=== PATIENT | male | born 1960 | race African-American/Black ===

== ENCOUNTER → 2016-09-26 | Outpatient (CLI) | payer OTHER ==
[2016-03-05 14:55] VITALS: BP 128/63
[~2016-09-26] MED LIST: CARI350T14 PO; CHOL2000 PO; DIPH25CA58 PO; DOCU-27 PO; MULT-460 PO; OXYC1TAB9 PO
--- NOTE | 2016-09-27 01:36 | PAIN ---
DATE OF SERVICE: 09/26/2016 INITIAL CONSULTATION FOR PAIN CLINIC HISTORY OF PRESENT ILLNESS: The patient is a 56-year-old male who presents with history of pain in the low back and the right lower extremity since about December of last year for approximately 9 months. He did have surgery in 02/2016 for decompressive laminectomy, laminotomy and diskectomy. The patient reports the pain never really went away in his right leg and his low back, it has been there at all time. He has had to quit work. 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 The patient reports the pain is constant, throbbing, shooting in the low back, across the low back, mid back into the right leg in the lateral and anterior aspect of the thigh to the knee on the right side, similar to that was prior to surgery. The patient reports it awakens him from sleep at least 6-8 times at night. It does not affect his bowel or bladder control, but does affect his ability to walk, using a cane in his right hand most times. He has tried oxycodone, Soma and other [id number] medications, which helped to moderate extent. Oxycodone is the best. The patient has had physical therapy, counseling, exercises, he is currently doing at home with physical therapy training in the past as well. The patient reports no symptoms on the left side. No complete loss of motor function, but significant weakness and fatigability with the right leg with any ambulation even a few steps. PAST MEDICAL HISTORY: Significant for hypercholesterolemia, headaches, urinary frequency, and osteoarthritis. PREVIOUS SURGERY: Include bilateral shoulder surgeries, twice on the right, once the left with hardware and reconstruction reported from previous injuries also lumbar surgery in 02/2016 as noted. CURRENT MEDICATIONS: Include oxycodone, multivitamins, vitamin D3, Colace, and Benadryl. ALLERGIES: The patient has no known drug allergies. FAMILY HISTORY: Hypertension, hypercholesterolemia and diabetes. SOCIAL HISTORY: The patient drinks alcohol only very rarely, does not smoke. He is , lives with his spouse. No children living at home. He is currently off work secondary to disability. REVIEW OF SYSTEMS: The patient's review of systems is positive for those items mentioned in history of present illness. All systems reviewed and otherwise negative. It is complete, full and well documented on the patient's chart. PHYSICAL EXAMINATION: VITAL SIGNS: Today, blood pressure is 146/92, pulse 85, respirations 16, temperature 98.0 degrees Fahrenheit. Height is 5 feet 5 inches. Weigh is 176 pounds. GENERAL: The patient is awake, alert, oriented, appropriate, very pleasant demeanor. HEENT: Head shows normocephalic, atraumatic. Extraocular movements are intact, symmetrical. Oral cavity, mucous membranes are moist and pink. Dentition is intact. NECK: Shows anterior throat supple without palpable lymphadenopathy noted. Swallow reflex is symmetrical. CHEST: Shows normal with inspection. Breath sounds clear to auscultation bilaterally. HEART: Shows S1 and S2 clear. ABDOMEN: Soft, nontender, and nondistended. No palpable organomegaly is noted. No rebound or guarding demonstrated. BACK: The patient's back shows spine grossly midline. He has normal appearing thoracic kyphosis and some mild flattening of lumbar lordotic curvature. Well healed surgical scars noted in the lumbar distribution. Lumbar paraspinous muscle shows symmetrical on inspection, with palpation shows some moderate tenderness with palpation bilaterally, but diffusely throughout the upper, middle and lower distribution, very firm, very tight though with normal muscle girth and symmetry. No trigger points. No radiation of pain demonstrated. The patient shows no tenderness over the spinous processes. No tenderness over the sacrum or sacroiliac regions with palpation. The patient shows good rotation and motion both laterally about 10 degrees right and left as well as extension 10 degrees, forward flexion at about 40 degrees without significant pain reported with some minor limitation with forward flexion secondary to inability to flex, but not painful. The patient's lower extremities showed deep tendon reflexes at 1+ in the patellar and tendo calcaneus tendons. Motor exam is approximately 4 on a scale of 5 with right dorsiflexion, extension, quadriceps and hamstring flexion; 5/5 on the left. Peripheral pulses are 1+ posterior tibial and dorsalis pedis pulses. No peripheral edema is noted. No clubbing, no cyanosis. EXTREMITIES: Lower extremities are warm and dry to touch, equal in color and appearance. Straight leg raise is positive on the right at about 35 degrees, is negative on the left. Gaenslen's and Peterson's maneuvers are grossly negative bilaterally. The patient is able to stand, stand on his toes, but loses balance very quickly putting all his weight on his right leg. Again, he is using a cane in his right hand and he ambulates with a significant limp favoring the right lower extremity. IMPRESSION: 1. This is a 56-year-old male with a history of low back pain for many years and status post surgery in 02/2016 with laminectomy decompression without significant improvement in his radicular pain in the right lower extremity. 2. MRI scan of lumbar spine showing prior surgery at L4-L5 extraforaminal intervertebral disk protrusion extrusion with impingement of the right L4 nerve root, moderate degenerative disk disease at L3-L4 and L2-L3. Again, this was prior to surgery. PLAN: Options were discussed with the patient including conservative medical management, physical therapy and interventional techniques. He would like to pursue most conservative course. We will try Medrol Dosepak. The patient was given instruction as well as side effects to be aware with medication. Also, we will have the patient start water physical therapy. If not significantly improved after these modalities, we did discuss possible interventional techniques such as caudal epidural steroid injection, but we will see how he does with the physical therapy and medication first. The patient will follow up in approximately 2 weeks as scheduled. RONAL SORIANO MD DR: MALCOLM/michaela JOB#: [id number] / [id number]
== END | disposition home or self-care (01) ==
LOC: PNCL 10:02
PROVIDERS: ATTEND Anesthesiology
DX: M51.26 Other intervertebral disc displacement, lumbar region (principal); M25.551 Pain in right hip; M54.40 Lumbago with sciatica, unspecified side
CPT/HCPCS: 99214

== ENCOUNTER → 2016-10-10 | Outpatient (CLI) | payer OTHER ==
[2016-03-05 14:55] VITALS: BP 128/63
[~2016-10-10] MED LIST changes: +IOHEXOL 180 MG/ML 10 ML VIAL. ONE; +methylPREDNISolone ACETATE 40 MG/ML VIAL. ONE; +methylPREDNISolone ACETATE 80 MG/ML VIAL. ONE
--- NOTE | 2016-10-10 19:52 | PAIN ---
DATE OF SERVICE: 10/10/2016 PROGRESS NOTE FOR PAIN CLINIC DIAGNOSES: Lumbar radiculopathy with lumbar degenerative disk disease and post-lumbar laminectomy syndrome. HISTORY OF PRESENT ILLNESS: The patient is a 56-year-old male, who returns for followup status post initial evaluation and Medrol Dosepak. I also ordered for physical therapy to start with pool therapy, which will start next week. The patient reports no significant difference with the Medrol Serjio, still significant pain in the low back and right lower extremity as it had radiating to the posterior gluteus, lateral thigh, anterior thigh, medial thigh and in to the posterior lower leg at times as well as stabbing, dull, tight aching, constant pain rated as 6 on a scale of 10. The patient reports still awaking him from sleep 4-5 times at night, he has to get reposition and taking pain medicines to ____ decrease the pain. PHYSICAL EXAMINATION: VITAL SIGNS: The patient's blood pressure 136/84, pulse 93, respirations are 20, temperature 98.2 degrees Fahrenheit, height is 5 feet 5 inches, weighs 177 pounds. GENERAL: The patient is awake, alert, oriented, appropriate, very pleasant demeanor. HEENT: Head shows normocephalic, atraumatic. Extraocular movements are intact and symmetrical. Oral cavity: Mucous membranes moist and pink. Dentition is intact. NECK: Shows anterior throat supple without palpable lymphadenopathy noted. Swallow reflex is symmetrical. CHEST: Shows normal on inspection. Breath sounds are clear to auscultation bilaterally. HEART: Shows S1 and S2 clear. ABDOMEN: Soft, nontender, nondistended. No palpable organomegaly noted. No rebound or guarding demonstrated. BACK: Shows spine grossly midline. Well healed surgical scars noted in the lumbar distribution and lumbar minor flattening of the lumbar lordotic curvature with palpation shows only diffuse tenderness in the middle and lower distribution of paraspinous muscles bilaterally in the lumbar distribution, but without radiation. No tenderness over the sacrum or sacroiliac regions. EXTREMITIES: Lower extremities showed deep tendon reflexes 1+ in the patellar and tendo calcaneus tendons. Motor exam is approximately 4 on a scale of 5 on the right, dorsiflexion and extension, 5/5 on the left. Options were discussed with the patient. The patient's old chart was reviewed as his current medication regimen updated. Current review of systems updated today as well. We will proceed with a caudal approach epidural steroid injection today with fluoroscopic guidance. Risks were again discussed including but not limited to bleeding, infection, possibility of epidural hematoma, subsequent neurologic compromise, dural puncture, headaches, spinal cord and/or nerve damage, side effects of steroid medication and poor results regarding pain control. The patient understands and wishes to proceed. The patient will return to clinic in approximately 2 weeks for followup, was counseled on return appointment, activity level and side effects to be aware of. DIAGNOSES: Lumbar radiculopathy with lumbar degenerative disk disease and post-lumbar laminectomy syndrome. PROCEDURE: Lumbar epidural steroid injection and caudal approach using C-arm fluoroscopic guidance under sterile prep and drape with local anesthetic. MEDICATIONS INJECTED: Depo-Medrol 120 mg plus 10 mL of preservative-free normal saline and 2 mL of Isovue for contrast. CONDITION AT DISCHARGE: Stable. The patient tolerated the procedure well, had no complications. RONAL SORIANO MD DR: MALCOLM/michaela JOB#: [id number] / [id number]
== END | disposition home or self-care (01) ==
LOC: PNCL 09:15
PROVIDERS: ATTEND Anesthesiology
DX: M51.16 Intervertebral disc disorders with radiculopathy, lumbar region (principal); M96.1 Postlaminectomy syndrome, not elsewhere classified; Z72.89 Other problems related to lifestyle
CPT/HCPCS: 62323; J1030; J1040; 62321

== ENCOUNTER → 2016-10-23 | Outpatient (CLI) | payer OTHER ==
[2016-03-05 14:55] VITALS: BP 128/63
[~2016-10-23] MED LIST changes: -IOHEXOL 180 MG/ML 10 ML VIAL. ONE; -methylPREDNISolone ACETATE 40 MG/ML VIAL. ONE; -methylPREDNISolone ACETATE 80 MG/ML VIAL. ONE
--- NOTE | 2016-10-24 00:03 | PAIN ---
DATE OF SERVICE: 10/23/2016 PROGRESS NOTE FOR PAIN CLINIC DIAGNOSES: Lumbar radiculopathy with lumbar degenerative disk disease and post-lumbar laminectomy syndrome. HISTORY OF PRESENT ILLNESS: The patient is a 56-year-old male, who returns for followup status post caudal epidural steroid injection x 1. The patient reports no significant improvement in the pain in his low back and right leg. We tried Medrol Dosepak prior to that with no significant improvement as well. The patient is somewhat frustrated ____ pain with these continued to do water aerobics therapy and reports he feels that this may help slightly. The patient reports the pain 8 on a scale of 10 at its worst, currently at 7 on a scale of 10, describes as an aching, dull, tight, cramping and constant, mostly in the right leg and low back. The patient has been taking some oxycodone from his primary physician, which does help by about 50%. The patient reports no new motor or sensory deficits, no new bowel or bladder incontinence or other complaints. It does awaken him from sleep At night and has been repositioned, get up and stand change positions and he is able to get back to sleep after this. PHYSICAL EXAMINATION: VITAL SIGNS: Today, the patient's blood pressure is 138/90, pulse 77, respirations 18, temperature 98.3 degrees Fahrenheit, height is 5 feet 5 inches, weight 174 pounds. GENERAL: The patient is awake, alert, oriented, appropriate, very pleasant demeanor. HEENT: Shows normocephalic, atraumatic. Extraocular movements are intact and symmetrical. Oral cavity shows mucous membranes are moist and pink. Dentition is intact. NECK: Shows anterior throat supple without palpable lymphadenopathy noted. Swallow reflex is symmetrical. CHEST: Shows normal on inspection. Breath sounds are clear to auscultation bilaterally. HEART: Shows S1 and S2 clear. ABDOMEN: Soft, nontender, nondistended. No palpable organomegaly is noted. No rebound or guarding demonstrated. BACK: Shows spine grossly midline. Lumbar flattening of the lordotic curvature is again noted. There is some mild tenderness with palpation in the lumbar paraspinous musculature bilaterally, but only diffusely in the lower lumbar distribution is symmetrical without evidence of atrophy or hypertrophy. EXTREMITIES: Lower extremities show deep tendon reflexes at 1+ in the patellar and tendo calcaneus tendons. Motor exam is approximately 4 on a scale of 5 on the right and 5/5 on the left with dorsiflexion, extension, quadriceps and hamstring flexion. Options were discussed with the patient. The patient's old chart was reviewed as is his current medication regimen updated. Current review of systems updated today as well. We will hold on any further injections for his choice, he would like to continue with pool therapy and recommend this as well to see how he is proceed. Once this is completed, he will follow up on as needed basis at this time. We discussed the possibility of repeat injection in the future. Again, we will maintain pool therapy at this time and have him return on as needed basis. RONAL SORIANO MD DR: MALCOLM/nts JOB#: [id number] / [id number]
== END | disposition home or self-care (01) ==
LOC: PNCL 08:57
PROVIDERS: ATTEND Anesthesiology
DX: M51.16 Intervertebral disc disorders with radiculopathy, lumbar region (principal); M96.1 Postlaminectomy syndrome, not elsewhere classified
CPT/HCPCS: 99212

== ENCOUNTER 2017-02-06 13:56 | Emergency (ER) | payer SELFPAY ==
[~2017-02-06 13:56] MED LIST changes: +DOCU-109 PO; -DOCU-27 PO
[2017-02-06 14:25] VITALS: BP 166/93
--- NOTE | 2017-02-06 14:53 | PHYS DOC ---
Adult General Chief Complaint Chief Complaint: BACK PAIN - NO INJURY HPI HPI Patient is a 56 year old female with history of sciatica, chronic back pain, high cholesterol, who presents today with moderate left low back pain radiating to the right lower extremity chronic in nature worse on movement. Patient denies any trauma. Denies any loss of bowel bladder function. He states he takes oxycodone 10 mg and ran out of them one week ago. He states he gets his medicine from his PCP Dr. Batres but due to insurance issues he has not been able to get into the doctor's. Review of Systems Review of Systems Constitutional: Denies fever or chills [] GI: Denies abdominal pain, nausea, vomiting, bloody stools or diarrhea [] : Denies dysuria or hematuria [] Musculoskeletal: Left low back pain radiating to the right lower extremity Integument: Denies rash or skin lesions [] Neurologic: Denies headache, focal weakness or sensory changes [] Current Medications Current Medications Current Medications Medications (Trade) Dose Ordered Sig/Wilmer Start Time Stop Time Status Last Admin Dose Admin Oxycodone HCl (Roxicodone) 10 mg 1X ONCE 02/06/17 15:00 02/06/17 15:01 DC 02/06/17 14:55 10 MG Allergies Allergies Allergies Coded Allergies Type Severity Reaction Last Updated Verified Zgjlywh-Gco-Hhb Reductase Inhibitor Allergy Intermediate 03/05/16 Yes acetaminophen Allergy Intermediate Itching 03/05/16 Yes codeine Allergy Intermediate Itching 03/05/16 Yes Milk Containing Products Adverse Reaction Intermediate Nausea and Vomiting Yes tomato Adverse Reaction Intermediate Nausea and Vomiting 03/05/16 Yes Physical Exam Physical Exam Constitutional: Well developed, well nourished, no acute distress, non-toxic appearance. [] Abdomen: Bowel sounds normal, soft, no tenderness, no masses, no pulsatile masses. [] Skin: Warm, dry, no erythema, no rash. [] Back: Old healed surgical incision noted on the lower lumbar spine, mild paraspinal muscle tenderness to the left lumbar spine, no midline lumbar spine tenderness, no CVA tenderness. [] Extremities: No tenderness, no cyanosis, no clubbing, ROM intact, no edema. [] Neurologic: Alert and oriented X 3, normal motor function, normal sensory function, no focal deficits noted. [] Psychologic: Affect normal, judgement normal, mood normal. [] Current Patient Data Vital Signs Vital Signs Date Time Temp Pulse Resp B/P (MAP) Pulse Ox O2 Delivery O2 Flow Rate FiO2 02/06/17 14:55 20 98 Room Air 02/06/17 14:25 98.3 68 98.3 EKG EKG [] Radiology/Procedures Radiology/Procedures [] Course & Med Decision Making Course & Med Decision Making Pertinent Labs and Imaging studies reviewed. (See chart for details) Patient is in the ED with complaints of exacerbation of chronic low back pain, no known injury, he states he out of his oxycodone and states he is not able to see his PCP due to insurance issues. He was given pain relief in the ED and discharged with Robaxin. Follow-up with his own PCP and the pain clinic in the course of next week. Dragon Disclaimer Dragon Disclaimer This electronic medical record was generated, in whole or in part, using a voice recognition dictation system. Departure Departure Impression: Primary Impression: Low back pain Additional Impression: Sciatica of right side Disposition: 01 HOME, SELF-CARE Condition: STABLE Referrals: KAUR BATRES MD (PCP) follow up next week Patient Instructions: Back Pain, Adult, Sciatica Additional Instructions: You were seen for low back pain with sciatica. Follow-up with the pain clinic as well as your primary care doctor next week. Scripts Methocarbamol (ROBAXIN) 500 Mg Tablet 1 TAB PO TID, #30 TAB Prov: ALIREZA VERA APRN 02/06/17 Problem Qualifiers Primary Impression: Low back pain Chronicity: chronic Back pain laterality: left Sciatica presence: with sciatica Sciatica laterality: sciatica of right side Qualified Codes: M54.41 - Lumbago with sciatica, right side; G89.29 - Other chronic pain ALIREZA VERA APRN Feb 06, 2017 14:53
[2017-02-06] MEDS ORDERED: METH-37 PO (14:59)
[2017-02-06] MEDS ORDERED: oxyCODONE IR 5 MG TABLET PO ONE (15:00)
== END 2017-02-06 15:15 | disposition home or self-care (01) ==
LOC: ER 13:56
DX: G89.29 Other chronic pain (principal); M54.41 Lumbago with sciatica, right side; E78.00 Pure hypercholesterolemia, unspecified; Z88.5 Allergy status to narcotic agent; Z88.8 Allergy status to other drugs, medicaments and biological substances; Z91.011 Allergy to milk products; Z91.018 Allergy to other foods
CPT/HCPCS: 99283

== ENCOUNTER → 2018-01-01 | Outpatient (CLI) | payer OTHER | END | disposition home or self-care (01) | LOC: MRI 09:39 | DX: M51.36 Other intervertebral disc degeneration, lumbar region (principal); M79.604 Pain in right leg; M48.061 Spinal stenosis, lumbar region without neurogenic claudication | CPT/HCPCS: 72148 ==

== ENCOUNTER 2018-01-28 10:55 | Emergency (ER) | payer OTHER ==
[~2018-01-28] VITALS: Ht 170.2 cm; Wt 81.6 kg
[~2018-01-28 10:55] MED LIST changes: +METH-37 PO; +OXYC-411 PO; -OXYC1TAB9 PO; +PRAV20TA2 PO; +PROP10TA PO
[2018-01-28 11:23] VITALS: BP 130/72
--- NOTE | 2018-01-28 12:21 | RAD ---
EXAM: Bilateral shoulders, 3 views. HISTORY: Pain. Fall. COMPARISON: None. FINDINGS: 3 views of both shoulders are obtained. There is chronic deformity of the articular surface of the right humeral head with subchondral sclerosis and marginal spurring. There is lucency within the right femoral neck possibly due to prior instrumentation. There are fixation screws within both glenoids. There is to moderate bilateral lateral humeral subchondral cyst formation and marginal spurring. There is superior migration of the right humeral head suggesting a rotator cuff tear. There is degenerative change involving the visualized cervical spine. There is mild thoracic scoliosis. IMPRESSION: 1. No acute osseous finding. 2. Superior migration of the right humeral head with decreased subacromial space suggesting a rotator cuff tear. 3. Bilateral glenoids fixation screws and moderate glenohumeral osteoarthritis. There is associated remodeling involving the articular aspect of the right humeral head. 4. Small lucent region within the right humeral neck possibly due to prior instrumentation. Electronically signed by: Kristin Baer MD (01/28/2018 12:18 PM) [id number]
[2018-01-28] MEDS: KETOROLAC 30 MG/ML VIAL. IM ONE (13:09)
[2018-01-28] MEDS: ORPHENADRINE CITRATE 60 MG/2 ML VIAL. IM ONE (13:09)
[2018-01-28] MEDS ORDERED: ORPH100T PO (13:36)
[2018-01-28] MEDS ORDERED: NAPR-514 PO (13:36)
--- NOTE | 2018-01-28 13:36 | PHYS DOC ---
Past Medical History Past Medical History: High Cholesterol, Hypertension, Other Additional Past Medical Histor: seasonal allergies, sciatica Past Surgical History: Other Additional Past Surgical Histo: L shoulder x1, R shoulder x2, back Alcohol Use: None Drug Use: None Adult General Chief Complaint Chief Complaint: SHOUDLER HPI HPI Patient is a 57 year old female who presents to the ER today with complaints of bilateral shoulder pain and upper back pain after a fall 2 months ago. He denies any numbness, tingling, or weakness of his extremities. He states that his pain as 8 out of 10 on the patient pain scale. He states he is out of his pain medication at home. Patient states he had a MRI of his back done here on January 01, 2018, he reports a history of chronic back pain and sciatica. His primary care doctor is Dr. Oropeza. Patient states that he typically takes oxycodone for relief of his pain however he is currently out of his oxycodone. Patient states that his pain increases with movement and that his upper shoulders feel tight to touch. Review of Systems Review of Systems Constitutional: Denies fever or chills [] Musculoskeletal: Reports upper back pain and bilateral shoulder pain after a fall 2 months ago Integument: Denies rash or skin lesions [] Neurologic: Denies headache, focal weakness or sensory changes [] Current Medications Current Medications Current Medications Medications (Trade) Dose Ordered Sig/Wilmer Start Time Stop Time Status Last Admin Dose Admin Ketorolac Tromethamine (Toradol 30mg Vial) 30 mg 1X ONCE 01/28/18 12:00 01/28/18 12:01 DC 01/28/18 13:09 30 MG Orphenadrine Citrate (Norflex) 60 mg 1X ONCE 01/28/18 12:00 01/28/18 12:01 DC 01/28/18 13:09 60 MG Allergies Allergies Allergies Coded Allergies Type Severity Reaction Last Updated Verified Rymfiho-Tfa-Acu Reductase Inhibitor Allergy Intermediate 03/05/16 Yes acetaminophen Allergy Intermediate Itching 03/05/16 Yes codeine Allergy Intermediate Itching 03/05/16 Yes Milk Containing Products Adverse Reaction Intermediate Nausea and Vomiting Yes tomato Adverse Reaction Intermediate Nausea and Vomiting 03/05/16 Yes Physical Exam Physical Exam Constitutional: Well developed, well nourished, no acute distress, non-toxic appearance. [] HENT: Normocephalic, atraumatic, bilateral external ears normal, nose normal. [] Eyes: PERRLA, conjunctiva normal, no discharge. [] Neck: Normal range of motion, chin to chest normal, no bony tenderness, supple, no stridor. [] Skin: Warm, dry, no erythema, no rash. [] Back: No bony tenderness, pt reports tightness with palpation of trapezius muscles bilaterally Extremities: No tenderness, no cyanosis, no clubbing, ROM intact, no edema., equal tube backer bilat[] Neurologic: Alert and oriented X 3, normal motor function, normal sensory function, no focal deficits noted. [] Psychologic: Affect normal, judgement normal, mood normal. Current Patient Data Vital Signs Vital Signs Date Time Temp Pulse Resp B/P (MAP) Pulse Ox O2 Delivery O2 Flow Rate FiO2 01/28/18 11:23 98.8 92 18 130/72 (91) 97 Room Air 98.8 EKG EKG [] Radiology/Procedures Radiology/Procedures IMAGING REPORT Signed PATIENT: BERTIN RAMIREZ ACCOUNT: [id number] : 1960 LOCATION: ER AGE: 57 SEX: M EXAM STATUS: REG ER ORD. PHYSICIAN: EKATERINA ZUNIGA APRN REASON: persistent pain after fall 2 months ago PROCEDURE: SHOULDER BILAT 2+V EXAM: Bilateral shoulders, 3 views. HISTORY: Pain. Fall. COMPARISON: None. FINDINGS: 3 views of both shoulders are obtained. There is chronic deformity of the articular surface of the right humeral head with subchondral sclerosis and marginal spurring. There is lucency within the right femoral neck possibly due to prior instrumentation. There are fixation screws within both glenoids. There is to moderate bilateral lateral humeral subchondral cyst formation and marginal spurring. There is superior migration of the right humeral head suggesting a rotator cuff tear. There is degenerative change involving the visualized cervical spine. There is mild thoracic scoliosis. IMPRESSION: 1. No acute osseous finding. 2. Superior migration of the right humeral head with decreased subacromial space suggesting a rotator cuff tear. 3. Bilateral glenoids fixation screws and moderate glenohumeral osteoarthritis. There is associated remodeling involving the articular aspect of the right humeral head. 4. Small lucent region within the right humeral neck possibly due to prior instrumentation. Electronically signed by: Kristin Mayfield MD (01/28/2018 12:18 PM) [facility] DICTATED and SIGNED BY: KRISTIN MAYFIELD MD DATE: 01/28/18 1215 [] Course & Med Decision Making Course & Med Decision Making Pertinent Labs and Imaging studies reviewed. (See chart for details) Patient is a 57-year-old male who presents to emergency room today with complaints of bilateral shoulder pain and upper back pain after a fall 2 months ago. VSS, xray of L shoulder shows no acute findings. R shoulder film suggestive of rotator cuff tear. Patient was given 30 mg of IM Toradol and 60 mg of IM orphenadrine, reported relief with these medications. Discussed these results with the patient patient agreed to follow-up with his orthopedic doctor for further evaluation of right shoulder pain. Patient will be prescribed naproxen and orphenadrine for home use. Patient verbalized an understanding of home care , medications, follow-up, and return to ED instructions and was in agreement with the plan of care. [] Dragon Disclaimer Dragon Disclaimer This electronic medical record was generated, in whole or in part, using a voice recognition dictation system. Departure Departure Impression: Primary Impression: Upper back strain Additional Impressions: Right shoulder pain Left shoulder pain Disposition: 01 HOME, SELF-CARE Condition: STABLE Referrals: KAUR BATRES MD (PCP) Patient Instructions: Back Pain, Adult, Drra-un-Dqiw, Shoulder Pain, Easy-to- Read Additional Instructions: Fill your prescriptions and use them as directed. Recommend application of ice or heat to sore areas as needed for comfort. Activity as tolerated. Follow-up with primary care doctor in the next 1-2 days. Return to the emergency room if your symptoms worsen. Scripts Orphenadrine Citrate (ORPHENADRINE CITRATE) 100 Mg Tablet.er 1 TAB PO BID for 7 Days, #14 TAB 0 Refills Prov: EKATERINA ZUNIGA APRN 01/28/18 Naproxen (NAPROXEN) 500 Mg Tablet 500 MG PO BID for 10 Days, #20 TAB 0 Refills Prov: EKATERINA ZUNIGA FIRST ASSIST 01/28/18 Problem Qualifiers Primary Impression: Upper back strain Encounter type: initial encounter Qualified Codes: S29.012A - Strain of muscle and tendon of back wall of thorax, initial encounter Additional Impressions: Right shoulder pain Chronicity: unspecified Qualified Codes: M25.511 - Pain in right shoulder Left shoulder pain Chronicity: unspecified Qualified Codes: M25.512 - Pain in left shoulder EKATERINA ZUNIGA APRN Jan 28, 2018 13:36
== END 2018-01-28 14:00 | disposition home or self-care (01) ==
LOC: ER 10:55
DX: S29.012A Strain of muscle and tendon of back wall of thorax, initial encounter (principal); M25.512 Pain in left shoulder; M25.511 Pain in right shoulder; E78.00 Pure hypercholesterolemia, unspecified; I10 Essential (primary) hypertension; Z88.6 Allergy status to analgesic agent; Z91.011 Allergy to milk products; Z88.5 Allergy status to narcotic agent; Z88.8 Allergy status to other drugs, medicaments and biological substances; Z91.018 Allergy to other foods
CPT/HCPCS: 73030; 96372; 99284; J1885; J2360

== ENCOUNTER 2020-01-10 08:42 | Emergency (ER) | payer OTHER, MEDICAID ==
[~2020-01-10] VITALS: Ht 167.6 cm; Wt 81.8 kg
[~2020-01-10 08:42] MED LIST changes: +NAPR-514 PO; +ORPH100T PO; -OXYC-411 PO; +OXYC1TAB20 PO; +OXYC1TAB22 PO
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
[2020-01-10 08:57] VITALS: BP 150/85
[2020-01-10] MEDS ORDERED: IBUPROFEN 200 MG TABLET. PO ONE (09:00)
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
[2020-01-10] MEDS ORDERED: IBUP-1007 PO (10:52)
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
== END 2020-01-10 11:31 | disposition home or self-care (01) ==
LOC: ER 08:42
DX: G89.11 Acute pain due to trauma (principal); M25.511 Pain in right shoulder; M54.5 Low back pain; G89.29 Other chronic pain; M54.2 Cervicalgia; E78.00 Pure hypercholesterolemia, unspecified; I10 Essential (primary) hypertension; Z98.890 Other specified postprocedural states; Z87.891 Personal history of nicotine dependence; Z88.5 Allergy status to narcotic agent; Z88.8 Allergy status to other drugs, medicaments and biological substances; Z91.018 Allergy to other foods; Z91.011 Allergy to milk products; V89.2XXA Person injured in unspecified motor-vehicle accident, traffic, initial encounter; Y93.89 Activity, other specified; Y92.410 Unspecified street and highway as the place of occurrence of the external cause; Y99.8 Other external cause status
CPT/HCPCS: 70450; 71045; 72125; 72128; 72131; 73030; 99285